=== PATIENT | female | born 1980 | race Caucasian/White ===

== ENCOUNTER 2018-08-29 23:27 | Emergency (ER) | payer BC ==
[~2018-08-29] VITALS: Ht 180.3 cm; Wt 115.7 kg
--- NOTE | 2018-08-29 23:32 | NUR ---
BIB [facility] C/O CHRONIC BACK PAIN FROM HOME WORSE TONIGHT. PT AA/OX 4. MOVES ALL EXTREMITIES WELL. PEDAL PULSES PRESENT. NO S/S SOB. SKIN PINK, WARM, DRY. EXTREME PAIN WITH MOVEMENT. 10/10PAIN, RADIATES TO BOTH LEGS. NO TRAUMA NOTED, -FALL. NAD. VSS. STABLE CONDITION. WILL CONTINUE TO MONITOR.
[2018-08-30] MEDS ORDERED: HYDROMORPHONE 1 MG/1 ML DISP.SYRIN ONE ×3 (00:17→02:13)
[2018-08-30] MEDS ORDERED: KETOROLAC TROMETHAMINE INJ 60 MG/2 ML VIAL IM ONE ×2 (00:17→00:30)
[2018-08-30] MEDS ORDERED: HYDROMORPHONE 1 MG/1 ML DISP.SYRIN IM ONE (00:30)
--- NOTE | 2018-08-30 00:32 | NUR ---
CONTINUES TO VERBALIZE EXTREME PAIN IN LOWER BACK, OTHERWISE STABLE CONDITION. VSS. NAD.
[2018-08-30] MEDS ORDERED: HYDROMORPHONE INJ 2 MG/ML DISP.SYRIN IV ONE (01:00)
[2018-08-30] MEDS ORDERED: HYDROMORPHONE 1 MG/1 ML DISP.SYRIN IV ONE (02:00)
[2018-08-30] MEDS ORDERED: oxyCODONE/APAP (5/325 MG) 1 UDTAB TABLET PO ONE (02:00)
--- NOTE | 2018-08-30 02:05 | NUR ---
PT ABLE TO SIT AND STAND ON OWN.
--- NOTE | 2018-08-30 02:06 | NUR ---
PT ABLE TO AMBULATE 10 FEET WITH STABLE GAIT.
[2018-08-30] MEDS ORDERED: oxyCODONE/APAP (5/325 MG) 1 UDTAB TABLET ONE (02:14)
--- NOTE | 2018-08-30 03:22 | NUR ---
Patient discharged to home in stable condition. Written and verbal after care instructions given. Patient verbalizes understanding of instruction. IV removed. Catheter intact and site benign. Pressure and 4x4 applied to site. No bleeding noted. ASSISTED TO CAR VIA WHEEL CHAIR. PT ABLE TO SELF TRANSFER FROM WHEELCHAIR TO PERSONAL VEHICLE. PT INSTRUCTED NOT TO OPERATE OR DRIVE HEAVY MACHINERY. NAD. VSS. STABLE CONDITION
[2018-08-30 03:24] VITALS: BP 124/78
== END 2018-08-30 03:26 | disposition home or self-care (01) ==
LOC: ER 23:30
DX: G89.29 Other chronic pain (principal); M54.5 Low back pain; F41.9 Anxiety disorder, unspecified; F32.9 Major depressive disorder, single episode, unspecified; F42.8 Other obsessive-compulsive disorder; Z88.8 Allergy status to other drugs, medicaments and biological substances
CPT/HCPCS: 96372; 96374; 96376; 99284; A4606; J1170 ×3; J1885; Z7610